=== PATIENT | female | born 1965 | race Caucasian/White ===

== ENCOUNTER 2019-05-25 01:44 | Day surgery (SDC) | payer OTHER, SELFPAY ==
[2019-05-09 09:42] VITALS: BMI 28.3
[2019-05-25] VITALS (10 sets, daily range): BP systolic 114–131; BP diastolic 57–76; PULSE 57–94; RESP 12–18; TEMP 36.5–36.6; O2SAT 96–100
--- NOTE | 2019-05-25 08:49 | P.OP_ITS ---
Procedure Note - Detailed Date of procedure: 05/25/19 Pre-op diagnosis: Chronic Cholecystitis With Stones Chronic cholecystitis, cholelithiasis Post-op diagnosis: same Procedure performed: Laparoscopic cholecystectomy Description of procedure: The patient was taken to surgery and induced into general anesthesia. The abdomen was prepped and draped. Trocars were placed in the usual fashion using 0.5% Marcaine with epinephrine and applied Medical optical trocars. A 5 millimeter camera was used. The gallbladder was decompressed with a laparoscopic aspirator. The cholecystotomy was closed with a Vicryl endo-loop. The gallbladder was retracted anterosuperiorly. Adhesions to the gallbladder were taken down so that the cholecystohepatic triangle was exposed. Traction was placed on the infu ndibulum. The cystic duct and cystic artery were dissected out very clearly. During the dissection of the cystic artery, arterial bleeding from a branch of the right hepatic artery occurred. This resulted in nearly all the bleeding during the surgery. Eventually I was able to grasp the vessel and occlude it. It was then clipped and hemostasis was achieved. It was read checked at least 2 or 3 additional times during the surgery and the clip was quite secure and no further bleeding was noted. The gallbladder was dissected off the liver at its lower 3rd. Critical view was achieved. We securely clipped and divided the cystic duct and cystic artery. The gallbladder was then further retracted so that the peritoneal attachments to the liver could be divided. Once the gallbladder was freed entirely, it was placed in an Endo-Catch bag and retrieved through the 10 11 epigastric trocar site. The epigastric trocar was then replaced. We reviewed the right upper quadrant. It was irrigated and suctioned. All looked good with no evidence of bleeding or bile leakage. We evacuated CO2 and removed the trocar sleeves. Skin wounds were closed with subcuticular 4 O Monocryl skin suture. The wounds were dressed with Exofin surgical adhesive. Patient was awakened and taken to recovery in good condition. Sponge and needle counts were correct x2. Anesthesia: GETA and local (0.5% Marcaine with epinephrine) Surgeon: Corey Nur MD Liquor Gallery Operator: NATALIYA Pichardo Estimated blood loss (mL): 5 Drains: No Packing: No Pathology: yes (Gallbladder) Complications: None Condition: stable Disposition: PACU Findings: Chronic inflammation, several gallstones noted. No biliary ductal di latation, no liver abnormalities.
[2019-05-25] MEDS: LACTATED RINGERS 1,000 ML 30 ML IV CONT ×2 (09:00→12:01)
--- NOTE | 2019-05-25 09:56 | WPDANESEPPF ---
Anes - Initial Pre Proc Eval Procedure: Operation Date: 05/25/19 10:30 Proposed Procedures p Laparoscopic Cholecystectomy - Corey Nur MD Date/Time: 05/25/19 09:56 Surgeon: Corey Nur MD Pre Op Diagnosis: Chronic Cholecystitis With Stones Patient Data Age: 54 Gender: F Height: 1.55 m Weight: 70.8 kg Last Vital Signs Temp 36.6 C 05/25/19 09:41 Pulse 68 05/25/19 09:41 Resp 16 05/25/19 09:41 BP 128/76 05/25/19 09:41 Pulse Ox 99 05/25/19 09:41 Allergies Allergy/AdvReac Type Severity Reaction Status Date / Time No Known Allergies Allergy Verified 05/25/19 08:40 Home Medications Medication Instructions Recorded Confirmed Type amlodipine 5 mg-benazepril 10 mg 1 cap PO DAILY 05/04/19 05/25/19 History capsule esomeprazole magnesium 40 mg 40 mg PO DAILY 05/04/19 05/25/19 History capsule,delayed release levothyroxine 75 mcg tablet 75 mcg PO DAILY 05/04/19 05/25/19 History pregabalin 150 mg capsule 150 mg PO BID 05/04/19 05/25/19 History albuterol sulfate [ProAir HFA] 2 - 4 puff INHALATION DIRECTED 05/09/19 05/25/19 History PRN hydrocodone-acetaminophen 1 - 2 tablet PO Q6H PRN #10 tablet 05/25/19 Rx ketorolac 10 mg PO Q6H 4 Days #16 tablet 05/25/19 Rx ECG: Date of Service: 05/17/19 Procedure(s): CA 12 lead EKG Accession Number(s): [id number] cc: ~ Measurements Intervals [place] Rate: 83 P: 50 [place]: 196 QRS: 37 QRSD: 73 T: 46 QT: 343 QTc: 404 Interpretive Statements SINUS RHYTHM BASELINE ARTIFACT- I, II, III, AVR, AVL,A VF NORMAL ECG Electronically Signed On 05-17-2019 9:22:59 COMMUNICATIONS ANALYST by Cyrus Lutz D.O. Dictated By: Cyrus Lutz DO 05/17/19 0900 Patient hx anesthesia problems: post op nausea/vomiting Family hx anesthesia problems: none PMFSH Past Medical History Medical History (Updated 05/25/19 @ 09:57 by Levon Brink MD) Active asthma Arthritis Gastroesophageal reflux disease HTN (hypertension) Hypothyroidism Thyroid disease Trigeminal neuralgia Surgical History Surgical History H/O brain surgery Social History Social History Smoking status: Never smoker Alcohol intake: never Anes - Eval Final PreProcedure Day of Procedure 05/25/19 09:56 Patient weight: overweight Heart: regular rate and rhythm Lungs: clear to auscultation and normal air movement Airway: Mallampati scale class II Neurological: alert and oriented Last oral intake: >/= 8 hours ASA classification: II Emergent: no Anesthetic plan: proceed Anesthesia type and monitoring: general ETT Informed Consent: The patient's anesthetic plan and its attendant risks and benefits were discussed with the patient/family/POA. Questions were solicited and answers provided to the satisfaction of the patient/family/POA.
[2019-05-25] MEDS: SCOPOLAMINE 1.5 MG PATCH TRANSDERM (10:23)
--- NOTE | 2019-05-25 10:26 | WPDHPUPDATE1 ---
History and Physical Update Update Date/Time: 05/25/19 10:26 History and Physical has been reviewed, including an updated exam of the patient. There are NO changes in the patient's condition. Risks, benefits, and alternatives have been discussed and questions answered. Patient agrees to proceed with procedure.
--- NOTE | 2019-05-25 10:26 | SUR.PREOP ---
Up to bathroom.
[2019-05-25] MEDS: ceFAZolin 2 GM/D5W 50 ML 2 GM/50 ML BAG IVPB (10:53)
[2019-05-25] MEDS: BUPIVACAINE/EPINEPHRINE 0.5% 30 ML VIAL INFILTRATE (11:38)
[2019-05-25] MEDS: ONDANSETRON INJ 4 MG/2 ML VIAL IV PUSH (12:15)
[2019-05-25] MEDS: HALOPERIDOL LACTATE 5 MG/ML VIAL 1 MG IV PUSH (12:57)
[2019-05-25] MEDS: HYDROMORPHONE HCL 1 MG/ML INJ 0.25 MG IV PUSH (13:11)
--- NOTE | 2019-05-25 13:20 | SUR.PHASEI ---
1320 spouse updated on pt condition
== END 2019-05-25 14:30 | disposition home or self-care (01) ==
PROVIDERS: PCP Internal Medicine; Visit Provider Surgery
PROC: 0FT44ZZ Resection of Gallbladder, Percutaneous Endoscopic Approach (ICD-10-PCS; CPT 47562; principal; 2019-05-25 10:30)
DX: K80.10 Calculus of gallbladder with chronic cholecystitis without obstruction (principal); K21.9 Gastro-esophageal reflux disease without esophagitis; E03.9 Hypothyroidism, unspecified; J45.909 Unspecified asthma, uncomplicated; I10 Essential (primary) hypertension; G50.0 Trigeminal neuralgia
CPT/HCPCS: 47562; 88304; A9270; C1713; J0131; J0690; J1100; J1170; J1630; J2250; J2405; J2704; J2710; J3010; J7120